=== PATIENT | male | born 1960 | race Caucasian/White ===

== ENCOUNTER → 2019-08-24 | Outpatient (CLI) | payer OTHER | LOC: YCFC.O 09:44 | PROVIDERS: ATTEND Family Medicine | DX: Z00.00 Encounter for general adult medical examination without abnormal findings (principal); I10 Essential (primary) hypertension; M10.9 Gout, unspecified; Z13.220 Encounter for screening for lipoid disorders; R53.83 Other fatigue; Z12.5 Encounter for screening for malignant neoplasm of prostate ==

== ENCOUNTER → 2019-09-03 | Outpatient (CLI) | payer OTHER ==
--- NOTE | 2019-09-03 11:48 | CT ---
EXAM DESCRIPTION: Abdomen/Pelvis w/wo Contrast: Computed Tomography. CLINICAL HISTORY: UNSPECIFIED ABDOMINAL PAIN COMPARISON: None. TECHNIQUE: Spiral-axial scans at 5 x 5 mm intervals through the abdomen and pelvis before and after 75 mL Optiray 320 nonionic IV contrast. No oral contrast. Coronal and sagittal 2.0 mm reconstructions. 5 mm Delayed helical-axial scans, liver through the pubic symphysis. No adverse reactions. Total Exam DLP 3922 mGy - cm. This exam was performed according to our departmental CT dose-optimization program which includes automated exposure control, adjustment of the mA and/or kV according to patient size and/or use of iterative reconstruction technique; to reduce radiation dose to as low as reasonably achievable (ALARA). FINDINGS: Lung bases and pleura: Minimal pleural-parenchymal scarring in the left lower lobe. Liver, Stomach, Spleen, Adrenal Glands: 19 cm long axis right hepatic lobe, with no focal lesions or abnormal enhancement. Minimal fatty density. Smooth contour. Stomach negative. Remaining solid organs are unremarkable.. Pancreas, Gallbladder, Ducts: 4-5 small radiodense layering gallstones in the gallbladder gravity dependent. No surrounding fatty inflammatory changes. Duct and pancreas are negative. Kidneys and Ureters: 3 mm nonobstructing radiodense stone upper pole of left kidney. No other stones and no hydronephrosis bilaterally. Small cortical cyst left kidney. No perirenal fluid. Mesentery: No fatty stranding or fascial thickening. No free air or free fluid. Aorta: Minimal tortuosity and minimal calcification in the bilateral common iliac arteries and internal iliac arteries. Small Bowel: Normal caliber. Terminal Ileum/Cecum: Normal caliber. Appendix not seen. Colon: Moderate amount of fecal matter. Redundancy of the distal transverse colon and splenic flexure. Also moderate redundancy of the sigmoid colon. Distention of the rectum by fecal matter. No complications. Pelvic Organs: Negative. Spine and Bony Pelvis: Lower thoracic spondylosis. Lumbar levoscoliosis. Spondylosis significant disc desiccation and disc space loss with marginal spurs L4-5 and L5-S1. Significant foraminal narrowing bilateral L4-5 and on the left at L5-S1. Hip Arthrosis and hypertrophic acetabular spurs and over coverage of the femoral heads bilaterally. Abdominal Wall/Back Soft Tissues: Bilateral small fatty inguinal hernias not containing bowel. Minimal diastases at the umbilicus not containing bowel. IMPRESSION: 1. Steatosis and enlargement of the liver. Smooth contour with no ascites. 2. 3 mm nonobstructing stone left kidney. 3. Mild to moderate constipation of the colon with redundancy but no complications. 4. Spondylosis and scoliosis in the lumbar spine with significant foraminal narrowing lower levels. Bilateral acetabular hypertrophy can be associated with femoral acetabular impingement. Bilateral small fatty inguinal hernias and umbilical diastatic hernia with no complications. Electronically signed by: Edvin Chau MD 09/03/2019 11:46 AM CDT
== END ==
LOC: CT 08:12
PROVIDERS: ATTEND Family Medicine
DX: N20.0 Calculus of kidney (principal); K59.00 Constipation, unspecified; K76.0 Fatty (change of) liver, not elsewhere classified; K40.90 Unilateral inguinal hernia, without obstruction or gangrene, not specified as recurrent; M47.896 Other spondylosis, lumbar region; M41.86 Other forms of scoliosis, lumbar region; M89.9 Disorder of bone, unspecified

== ENCOUNTER → 2019-10-08 | Outpatient (CLI) | payer OTHER | LOC: YCFC.O 17:19 | PROVIDERS: ATTEND Family Medicine | DX: N28.9 Disorder of kidney and ureter, unspecified (principal) ==

== ENCOUNTER → 2020-02-15 | Outpatient (CLI) | payer OTHER | LOC: YCFC.O 10:57 | PROVIDERS: ATTEND Nurse Practitioner Family | DX: Z11.59 Encounter for screening for other viral diseases (principal) ==